=== PATIENT | male | born 1935 | race Two or more races ===

== ENCOUNTER 2019-03-30 13:00 | Outpatient (CLI) | payer MEDICARE, MEDICAID | END 2019-03-30 23:59 | disposition home or self-care (01) | LOC: WOU 13:00 | PROVIDERS: ATTEND Podiatrist Foot & Ankle Surgery | DX: R22.42 Localized swelling, mass and lump, left lower limb (principal); M79.89 Other specified soft tissue disorders; E11.9 Type 2 diabetes mellitus without complications; I25.10 Atherosclerotic heart disease of native coronary artery without angina pectoris; Z86.12 Personal history of poliomyelitis; B35.1 Tinea unguium; R60.0 Localized edema; Z95.5 Presence of coronary angioplasty implant and graft; Z79.4 Long term (current) use of insulin; Z79.899 Other long term (current) drug therapy | CPT/HCPCS: A6402; G0463 ==

== ENCOUNTER 2019-04-06 11:42 | Outpatient (CLI) | payer MEDICARE, MEDICAID | END 2019-04-06 23:59 | disposition home or self-care (01) | LOC: CARD 11:42 | PROVIDERS: ATTEND Podiatrist Foot & Ankle Surgery | DX: M85.88 Other specified disorders of bone density and structure, other site (principal); M79.89 Other specified soft tissue disorders; M62.572 Muscle wasting and atrophy, not elsewhere classified, left ankle and foot; I73.9 Peripheral vascular disease, unspecified; R22.42 Localized swelling, mass and lump, left lower limb | CPT/HCPCS: 73630-TC; 73718-TC ==

== ENCOUNTER 2019-04-19 14:05 | Outpatient (CLI) | payer MEDICARE, MEDICAID | END 2019-04-19 23:59 | disposition home or self-care (01) | LOC: WOU 14:05 | PROVIDERS: ATTEND Podiatrist Foot & Ankle Surgery | DX: M79.89 Other specified soft tissue disorders (principal); E11.9 Type 2 diabetes mellitus without complications; I25.10 Atherosclerotic heart disease of native coronary artery without angina pectoris; B35.1 Tinea unguium; R60.0 Localized edema; Z86.12 Personal history of poliomyelitis; Z79.84 Long term (current) use of oral hypoglycemic drugs | CPT/HCPCS: 11104; 11105 ×2; 88305; A6402; J3490 ==

== ENCOUNTER 2019-04-26 13:10 | Outpatient (CLI) | payer MEDICARE, MEDICAID | END 2019-04-26 23:59 | disposition home health service (06) | LOC: WOU 13:10 | PROVIDERS: ATTEND Podiatrist Foot & Ankle Surgery | DX: T81.89XA Other complications of procedures, not elsewhere classified, initial encounter (principal); E11.9 Type 2 diabetes mellitus without complications; I25.10 Atherosclerotic heart disease of native coronary artery without angina pectoris; B35.1 Tinea unguium; R60.0 Localized edema; Z86.12 Personal history of poliomyelitis; Z79.84 Long term (current) use of oral hypoglycemic drugs; Z95.818 Presence of other cardiac implants and grafts | CPT/HCPCS: 11042; 87070; A6402; 87186-TC ==

== ENCOUNTER 2019-05-17 12:50 | Outpatient (CLI) | payer MEDICARE, MEDICAID | END 2019-05-17 23:59 | disposition home health service (06) | LOC: WOU 12:50 | PROVIDERS: ATTEND Podiatrist Foot & Ankle Surgery | DX: T81.89XA Other complications of procedures, not elsewhere classified, initial encounter (principal); M79.89 Other specified soft tissue disorders; B35.1 Tinea unguium; E11.9 Type 2 diabetes mellitus without complications; R60.0 Localized edema; Z86.12 Personal history of poliomyelitis; Z79.84 Long term (current) use of oral hypoglycemic drugs; Z95.818 Presence of other cardiac implants and grafts | CPT/HCPCS: 11042; A6402 ==

== ENCOUNTER 2019-05-31 13:00 | Outpatient (CLI) | payer MEDICARE, MEDICAID | END 2019-05-31 23:59 | disposition home health service (06) | LOC: WOU 13:00 | PROVIDERS: ATTEND Podiatrist Foot & Ankle Surgery | DX: T81.89XA Other complications of procedures, not elsewhere classified, initial encounter (principal); M79.89 Other specified soft tissue disorders; E11.9 Type 2 diabetes mellitus without complications; I25.10 Atherosclerotic heart disease of native coronary artery without angina pectoris; Z95.5 Presence of coronary angioplasty implant and graft; B35.1 Tinea unguium; Z86.12 Personal history of poliomyelitis; R60.0 Localized edema; Z79.84 Long term (current) use of oral hypoglycemic drugs | CPT/HCPCS: 11042; A6402 ==

== ENCOUNTER 2019-06-07 14:00 | Outpatient (CLI) | payer MEDICARE, MEDICAID | END 2019-06-07 23:59 | disposition home health service (06) | LOC: WOU 14:00 | PROVIDERS: ATTEND Podiatrist Foot & Ankle Surgery | DX: T81.89XA Other complications of procedures, not elsewhere classified, initial encounter (principal); M79.89 Other specified soft tissue disorders; E11.9 Type 2 diabetes mellitus without complications; I25.10 Atherosclerotic heart disease of native coronary artery without angina pectoris; Z86.12 Personal history of poliomyelitis; B35.1 Tinea unguium; R60.0 Localized edema; Z79.84 Long term (current) use of oral hypoglycemic drugs; Z95.5 Presence of coronary angioplasty implant and graft | CPT/HCPCS: 11042; 17250; A6402 ==

== ENCOUNTER 2019-06-14 14:00 | Outpatient (CLI) | payer MEDICARE, MEDICAID | END 2019-06-14 23:59 | disposition home health service (06) | LOC: WOU 14:00 | PROVIDERS: ATTEND Podiatrist Foot & Ankle Surgery | DX: T81.89XA Other complications of procedures, not elsewhere classified, initial encounter (principal); M79.89 Other specified soft tissue disorders; E11.9 Type 2 diabetes mellitus without complications; I25.10 Atherosclerotic heart disease of native coronary artery without angina pectoris; B35.1 Tinea unguium; R60.0 Localized edema; Z86.12 Personal history of poliomyelitis; Z79.84 Long term (current) use of oral hypoglycemic drugs; Z95.5 Presence of coronary angioplasty implant and graft | CPT/HCPCS: 11042; A6402 ==

== ENCOUNTER 2019-07-01 12:00 | Outpatient (CLI) | payer MEDICARE, MEDICAID | END 2019-07-01 23:59 | disposition home health service (06) | LOC: WOU 12:00 | PROVIDERS: ATTEND Podiatrist Foot & Ankle Surgery | DX: Z48.817 Encounter for surgical aftercare following surgery on the skin and subcutaneous tissue (principal); M79.89 Other specified soft tissue disorders; E11.9 Type 2 diabetes mellitus without complications; Z87.891 Personal history of nicotine dependence; I25.10 Atherosclerotic heart disease of native coronary artery without angina pectoris; Z95.5 Presence of coronary angioplasty implant and graft; Z86.12 Personal history of poliomyelitis; B35.1 Tinea unguium; E11.51 Type 2 diabetes mellitus with diabetic peripheral angiopathy without gangrene; L97.522 Non-pressure chronic ulcer of other part of left foot with fat layer exposed | CPT/HCPCS: 11042 ==

== ENCOUNTER 2019-07-15 13:30 | Outpatient (CLI) | payer MEDICARE, MEDICAID | END 2019-07-15 23:59 | disposition home or self-care (01) | LOC: WOU 13:30 | PROVIDERS: ATTEND Podiatrist Foot & Ankle Surgery | DX: Z48.817 Encounter for surgical aftercare following surgery on the skin and subcutaneous tissue (principal); R60.0 Localized edema; R22.42 Localized swelling, mass and lump, left lower limb | CPT/HCPCS: G0463 ==